=== PATIENT | female | born 1935 | race Two or more races ===

== ENCOUNTER 2017-12-16 13:59 | Inpatient (IN) | payer MEDICARE, OTHER ==
[2017-12-16] MEDS ORDERED: oxyCODONE/APAP 5/325 1 TAB TABLET PO (15:45)
[2017-12-16] MEDS ORDERED: traMADol 50 MG TABLET PO (15:45)
[2017-12-16] MEDS ORDERED: methylPREDNISolone ACETATE 40 MG/ML VIAL. ×2 (18:00)
[2017-12-16] MEDS: DOCUSATE SODIUM 100 MG CAPSULE. PO (21:06)
[2017-12-16] MEDS: LIDOCAINE (700MG/PATCH) PATCH. TD (21:22)
[2017-12-16] MEDS: LOSARTAN POTASSIUM 50 MG TABLET. PO (21:53)
[2017-12-17] MEDS: tiZANidine 4 MG TABLET. PO ×2 (06:00→13:30)
[2017-12-17] MEDS: IBUPROFEN 200 MG TABLET. PO (06:11)
[2017-12-17] MEDS: CETIRIZINE HCL 10 MG TABLET. PO (08:43)
[2017-12-17] MEDS: LIDOCAINE (700MG/PATCH) PATCH. TD (08:46)
[2017-12-17] MEDS ORDERED: LOSARTAN POTASSIUM 50 MG TABLET. PO (09:00)
[2017-12-17] MEDS: methylPREDNISolone ACETATE 40 MG/ML VIAL. IM ×2 (12:25)
[2017-12-17] MEDS: ACETAMINOPHEN 500 MG TABLET PO (15:13)
== END 2017-12-17 18:05 | disposition home health service (06) | DRG 552 ==
LOC: 4 NORTH 13:59
DX: M43.16 Spondylolisthesis, lumbar region (principal); G89.29 Other chronic pain; M70.61 Trochanteric bursitis, right hip; M51.36 Other intervertebral disc degeneration, lumbar region; I10 Essential (primary) hypertension; M17.0 Bilateral primary osteoarthritis of knee; Z88.5 Allergy status to narcotic agent; Z96.641 Presence of right artificial hip joint; Z96.651 Presence of right artificial knee joint
CPT/HCPCS: 72100; 72148; 73502; 97161-GP; 97165-GO; J1030